=== PATIENT | male | born 2000 | race Hispanic/Latino ===

== ENCOUNTER 2022-02-11 13:23 | Emergency (ER) | payer OTHER ==
[~2022-02-11] VITALS: Ht 167.6 cm; Wt 59.0 kg
[2022-02-11 13:28] VITALS: BP 132/72
[2022-02-11 13:53] LABS: APPEARANCE,URINE CLEAR (CLEAR); BILIRUBIN,URINE NEGATIVE (NEGATIVE); COLOR,URINE YELLOW (YELLOW); GLUCOSE, URINE (UA) NEGATIVE (NEGATIVE); KETONES,URINE NEGATIVE (NEGATIVE); LEUKOCYTE ESTERASE ,URINE NEGATIVE (NEGATIVE); NITRATE,URINE NEGATIVE (NEGATIVE); OCCULT BLOOD,URINE NEGATIVE (NEGATIVE); PROTEIN,URINE NEGATIVE (NEGATIVE)
[2022-02-12 09:17] LABS: RAPID PLASMA REAGIN NONREACTIVE (NONREACTIVE)
[2022-02-15 22:08] LABS: HERPES SIMPLEX VIRUS-1 BY PCR Negative (Negative); HERPES SIMPLEX VIRUS-2 BY PCR Negative (Negative)
== END 2022-02-11 14:40 | disposition home or self-care (01) ==
LOC: EDH 13:23
DX: Z20.2 Contact with and (suspected) exposure to infections with a predominantly sexual mode of transmission (principal); N48.89 Other specified disorders of penis
CPT/HCPCS: 36415; 81003; 86592; 86701; 87390; 87486; 87529; 87797